=== PATIENT | female | born 1940 | race Caucasian/White ===

== ENCOUNTER 2017-06-17 10:02 | Emergency (ER) | payer MEDICARE, OTHER ==
[2017-06-17 10:10] VITALS: BP 124/71; PULSE 72; TEMP 97.9; BMI 27.8
[2017-06-17] MEDS ORDERED: KETOROLAC TROMETHAMINE 60 MG/2 ML VIAL IM ONE (11:14)
[2017-06-17] MEDS ORDERED: KETOROLAC TROMETHAMINE 60 MG/2 ML VIAL ONE (11:18)
--- NOTE | 2017-06-17 11:20 | PDOC ---
History of Present Illness - General Chief Complaint: Back Pain Stated Complaint: LT LEG PAIN Time Seen by Provider: 06/17/17 10:40 History Source: Patient, Film Touch Up Inspector Used Exam Limitations: Language Barrier - History of Present Illness Initial Comments: 06/17/17 11:14 With using Czech telephone interpreter for the deaf, patient came for evaluation of left hip and low back pain times one week. States has a history many years ago of 2- 3 disc problems that she receives physical therapy for but hasn't had no attention since. States onset of this pain happened last week, has progressively worsened and ointments and massage have not really resolved. Has taken no medication other than Tylenol. Has not discussed problem with her doctor. Denies problems with bowels or bladder, denies fevers, denies any recent exercise or trauma , denies any injury or car accidents. 06/17/17 11:15 Occurred: reports: last week Severity: reports: mild, moderate Pain Location: reports: lower extremity Method of Injury: Yes: unknown Modifying Factors: improves with: None Associated Symptoms (Fall): denies symptoms Past History - Travel Traveled outside of the country in the last 30 days: Yes Close contact w/someone who was outside of country & ill: Yes - Past Medical History Allergies/Adverse Reactions: Allergies Allergy/AdvReac Type Severity Reaction Status Date / Time No Known Allergies Allergy Verified 06/17/17 10:08 Home Medications: Ambulatory Orders Budesonide/Formeterol Fumarate [SYMBICORT 160/4.5mcg -] 1 inh PO DAILY 10/04/15 Clopidogrel Bisulfate [Plavix -] 75 mg PO DAILY 10/04/15 Esomeprazole Magnesium [Nexium 24Hr] 40 mg PO DAILY 10/04/15 Ezetimibe [Zetia] 10 mg PO DAILY 10/04/15 Hydroxychloroquine Sulfate [Plaquenil] 200 mg PO DAILY 10/04/15 Meclizine HCl [Antivert -] 25 mg PO BID PRN 10/04/15 Ranolazine [Ranexa -] 1,000 mg PO BID 10/04/15 Rosuvastatin Calcium [Crestor] 10 mg PO DAILY 10/04/15 Cholecalciferol (Vitamin D3) [Vitamin D] 50,000 unit PO WEEKLY 10/05/15 Asthma: Yes Cardiac Disorders: Yes CVA: Yes (2002) COPD: Yes Dementia: Yes Diabetes: Yes GI Disorders: Yes (GERD) HTN: Yes Hypercholesterolemia: Yes Liver Disease: (OA,RA) Thyroid Disease: Yes (hypothyroidism) - Suicide/Smoking/Psychosocial Hx Smoking Status: No Smoking History: Former smoker Have you smoked in the past 12 months: No Number of Cigarettes Smoked Daily: 0 If you are a former smoker, when did you quit?: 20+ yrs Information on smoking cessation initiated: No Hx Alcohol Use: No Drug/Substance Use Hx: No Substance Use Type: None Hx Substance Use Treatment: No Review of Systems - Review of Systems Able to Perform ROS?: Yes Is the patient limited Indian proficient: Yes Constitutional: Yes: Symptoms Reported, See HPI, Malaise. No: Fever HEENTM: No: Symptoms Reported Respiratory: Yes: Symptoms reported, See HPI ABD/GI: Yes: See HPI. No: Symptoms Reported : Yes: See HPI. No: Symptoms Reported Musculoskeletal: Yes: Symptoms Reported, See HPI, Back Pain, Joint Pain, Joint Stiffness (left hip) Integumentary: Yes: See HPI. No: Symptoms Reported Neurological: Yes: See HPI. No: Symptoms reported, Numbness All Other Systems: Reviewed and Negative *Physical Exam - Vital Signs Last Vital Signs Temp Pulse Resp BP Pulse Ox 97.9 F 72 20 124/71 96 06/17/17 10:08 06/17/17 10:08 06/17/17 10:08 06/17/17 10:08 06/17/17 10:08 - Physical Exam General Appearance: Yes: Nourished, Appropriately Dressed, Apparent Distress, Mild Distress HEENT: positive: GRANT, Normal ENT Inspection, TMs Normal, Pharynx Normal Neck: positive: Supple. negative: Tender Respiratory/Chest: positive: Lungs Clear, Normal Breath Sounds Gastrointestinal/Abdominal: positive: Soft. negative: Tender Musculoskeletal: positive: Normal Inspection, Decreased Range of Motion (tense tight musculature to paravertebral spinous muscles). negative: Vertebral Tenderness Extremity: positive: Normal Capillary Refill. negative: Normal Inspection, Normal Range of Motion (limited range of motion secondary to tenderness at PIP joint without crepitus or step-offs, patient is ambulatory with minimal limp but walks slowly) Integumentary: positive: Dry, Warm, Pale Neurologic: positive: artificial breast fabricator II-XII NML intact, Fully Oriented, Alert, Normal Mood/ Affect, Normal Response, Motor Strength 10/02 ED Treatment Course - RADIOLOGY Radiology Studies Ordered: Category Date Time Status SPINE-LUMBAR SACRAL [RAD] Stat Radiology 06/17/17 11:14 Ordered Progress Note - Progress Note Progress Note: X-rays negative for fractures or dislocations, shows significant DJD. Patient encouraged to use only Tylenol as in fact Plavix is still current active medication therefore cannot use NSAIDs. Encouraged to follow up with her PMD for possible referral for physical therapy for continued pain *DC/Admit/Observation/Transfer Diagnosis at time of Disposition: Sciatica of left side - Discharge Dispostion Disposition: HOME Condition at time of disposition: Stable Admit: No - Referrals Referrals: Junaid Lopez [Primary Care Provider] - Jose Rivas MD [Staff Physician] - - Patient Instructions Printed Discharge Instructions: DI for Osteoarthritis Additional Instructions: Rest, no heavy lifting or exercise until pain is resolved Hot soaks to neck and low back as often as possible/hot showers or Jacuzzis No massage or therapy until spasm is gone Tylenol for pain relief one or 2 tablets every 6 hours as needed. Do not use ibuprofen products as they interact with your other medications, Plavix If not significant improvement within 24 hours with medication and rest regime, followup with private physician for change in medications and /or therapy. - Post Discharge Activity
[2017-06-17 12:13] LABS: URINE APPEARANCE SLCLOUDY; URINE BILIRUBIN NEGATIVE (NEGATIVE); URINE BLOOD NEGATIVE (NEGATIVE); URINE COLOR AMBER; URINE GLUCOSE (UA) NEGATIVE (NEGATIVE); URINE KETONE TRACE (NEGATIVE); URINE NITRITE NEGATIVE (NEGATIVE); URINE UROBILINOGEN NEGATIVE mg/dL (0.2-1.0)
[2017-06-17 12:42] LABS: URINE LEUK ESTERASE 3+ (NEGATIVE); URINE PROTEIN 1+ (NEGATIVE)
[2017-06-17 12:56] LABS: EPI CELLS RARE /HPF (FEW); URINE BACTERIA RARE /hpf (NONE SEEN); URINE HYALINE CAST 7 /lpf; URINE MUCUS MANY
== END 2017-06-17 13:34 | disposition home or self-care (01) ==
LOC: JERFT 10:02
PROC: 3E0233Z Introduction of Anti-inflammatory into Muscle, Percutaneous Approach (ICD-10-PCS; principal; 2017-06-17)
DX: M54.42 Lumbago with sciatica, left side (principal); J44.9 Chronic obstructive pulmonary disease, unspecified; I10 Essential (primary) hypertension; E03.9 Hypothyroidism, unspecified; K21.9 Gastro-esophageal reflux disease without esophagitis; E78.00 Pure hypercholesterolemia, unspecified; M19.90 Unspecified osteoarthritis, unspecified site; M06.9 Rheumatoid arthritis, unspecified; Z87.891 Personal history of nicotine dependence; Z86.73 Personal history of transient ischemic attack (TIA), and cerebral infarction without residual deficits; Z79.01 Long term (current) use of anticoagulants; J45.909 Unspecified asthma, uncomplicated
CPT/HCPCS: 72100-TC; 72170-TC; 81003; 81015; 99281-25

== ENCOUNTER → 2023-10-09 | Emergency (ER) | payer MEDICARE, OTHER ==
[2023-10-09] MEDS: EPINEPHrine 1:10,000 (P-F SYR) 1 MG/10 ML DISP.SYRIN IVPUSH ONE ×3 (23:17→23:25)
[2023-10-09] MEDS: SODIUM BICARBONATE 4.2% 5 MEQ/10 ML DISP.SYRIN IVPUSH ONE (23:18)
[2023-10-10 00:20] VITALS: BP 0/0; PULSE 0; RESP 0; TEMP 0; BMI 33.6
== END | disposition expired ==
LOC: JER 23:15
PROC: 3E033GC Introduction of Other Therapeutic Substance into Peripheral Vein, Percutaneous Approach (ICD-10-PCS; principal; 2023-10-09)
PROC: 3E033GC Introduction of Other Therapeutic Substance into Peripheral Vein, Percutaneous Approach (ICD-10-PCS; 2023-10-09)
DX: I46.9 Cardiac arrest, cause unspecified (principal)
CPT/HCPCS: 96374; 96375; 99284-25